=== PATIENT | male | born 1950 | race Two or more races ===

== ENCOUNTER → 2024-12-03 09:13 | Outpatient (CLI) | payer OTHER | END | disposition home or self-care (01) | LOC: NUCLEAR 09:13 | DX: I73.9 Peripheral vascular disease, unspecified (principal); I83.93 Asymptomatic varicose veins of bilateral lower extremities; I87.2 Venous insufficiency (chronic) (peripheral) ==

== ENCOUNTER 2024-12-04 10:53 | Outpatient (CLI) | payer OTHER | END 2024-12-04 10:54 | disposition home or self-care (01) | LOC: NUCLEAR 10:53 | DX: I73.9 Peripheral vascular disease, unspecified (principal); I83.93 Asymptomatic varicose veins of bilateral lower extremities ==